=== PATIENT | male | born 2000 | race Caucasian/White ===

== ENCOUNTER 2019-04-25 01:54 | Emergency (ER) | payer SELFPAY ==
[2019-04-25 01:55] VITALS: BP 133/81; PULSE 85; RESP 16; TEMP 36.6; O2SAT 100; BMI 35.9
--- NOTE | 2019-04-25 02:10 | ED.DCSUM_ITS ---
History of Present Illness Chief Complaint: Eye Problem Narrative: Patient is a 18-year-old male who presents with a foreign body sensation in his left eye. He does work as a fiberglass laminator. He uses eye protection including safety goggles. He has a fixed helmet, not an auto-dimming helmet. He felt fine when he went to bed but when he woke this morning he had left eye pain and a foreign body sensation. He denies any photophobia/light sensitivity. He does have eye redness. No history of prior similar symptoms. He denies any blurry vision or visual changes. Past Medical History - Allergies and Home Meds Allergies/Adverse Reactions: Allergies No Known Allergies Allergy (Verified 04/25/19 01:57) Primary Care Physician: NOT,DEFINED [Primary Care Provider] - Past Medical History: None Smoking Status: Never smoker Review of Systems All systems negative except as indicated General: Denies: Fever Eyes: Reports: - - Left eye pain/foreign body sensation Cardiovascular: Denies: Chest pain Respiratory: Denies: Dyspnea Physical Exam Vital Signs/Narrative: Vital Signs Temp Pulse Resp BP Pulse Ox 04/25/19 01:55 97.8 F 85 16 133/81 H 100 Inital Vital Signs reviewed: Yes General: Well nourished Head: Normocephalic Eyes: - - Left eye conjunctival injection no foreign body visualized, eyelid everted, pupils are equally round and reactive to light and accommodation, extraocular motion intact without pain or palsy anterior chambers deep and quiet slit-lamp examination with floor seen does reveal punctate dye uptake/punctate keratitis Cardiovascular: Regular rate Respiratory: No distress Skin: Normal color Neurological: Alert Psychological: Normal affect Diagnostic/Tx/Re-eval - Medical Decision Making Patient's exam is consistent with UV keratitis. He was given ophthalmic bacitracin and instructed on symptomatic or supportive care. He was referred to ophthalmology for follow-up. He understands to return for new or worsening symptoms and was instructed on signs and symptoms to monitor for. ED Disposition - Plan for ED Patient: Disposition: Home or Assisted Living Diagnosis: UV keratitis Instructions: FLASH BURN, Eye Referrals: NOT,DEFINED [Primary Care Provider] - Saurabh Aden MD [STAFF PHYSICIAN] -
[2019-04-25] MEDS: Tetracaine 0.5% Ophthalmic Bottle 1 DRP LEFT EYE (02:27)
[2019-04-25] MEDS: Fluorescein 1 MG STRIP 1 STRIP LEFT EYE (02:28)
[2019-04-25 02:29] VITALS: PULSE 86; RESP 16; O2SAT 100
--- NOTE | 2019-04-25 02:29 | ED.RN ---
PT REFUSED WORKMAN'S COMP.
== END 2019-04-25 02:29 | disposition home or self-care (01) ==
PROVIDERS: Emergency Provider Emergency Medicine
DX: H16.132 Photokeratitis, left eye (principal)
CPT/HCPCS: 99282

== ENCOUNTER 2019-06-16 23:19 | Emergency (ER) | payer SELFPAY ==
[2019-06-16 23:19] VITALS: BP 159/78; PULSE 83; RESP 15; TEMP 36.4; O2SAT 97; BMI 35.2
--- NOTE | 2019-06-16 23:56 | ED.DCSUM_ITS ---
History of Present Illness Chief Complaint: Eye Problem Detail of Chief Complaint: Foreign body left eye Informant: Patient Onset: Yesterday Current Severity: Mild Maximum Severity: Mild Narrative: Patient was grinding yesterday without safety glasses. He felt something hit his left eye. He presents greater than 24 hours from the time of injury. He states he does see a small piece of metal on the colored portion of his left eye. He has mild light sensitivity. No obvious vision change. Past Medical History - Allergies and Home Meds Allergies/Adverse Reactions: Allergies No Known Allergies Allergy (Verified 06/16/19 23:22) Primary Care Physician: Care Physician,No Primary [Primary Care Provider] - Prior records reviewed: Yes Past Medical History: - - Reviewed Smoking Status: Never smoker Review of Systems General: Denies: Chills, Fever Eyes: Reports: - - Foreign body sensation left eye. Denies: Visual changes - bilaterally ENT: Denies: Bilateral ear pain Cardiovascular: Denies: Chest pain Respiratory: Denies: Dyspnea Gastrointestinal: Denies: Abdominal pain Neurological: Denies: Headache Physical Exam Vital Signs/Narrative: Vital Signs Temp Pulse Resp BP Pulse Ox 06/16/19 23:19 97.6 F L 83 15 159/78 H 97 Inital Vital Signs reviewed: Yes General: Well nourished, Well developed Head: Normocephalic Eyes: Perrl, EOMI, - - Small foreign body noted at the 2 o'clock position of the left eye. Minimal conjunctival injection. Extraocular movements intact. ENT: Moist mucous membranes Neck: Supple Cardiovascular: Regular rate, Regular rhythm Respiratory: No distress Abdomen: Soft Diagnostic/Tx/Re-eval - Medical Decision Making Tetracaine is applied to the left eye. Slit-lamp examination does reveal foreign body noted at the 2 o'clock position. I am unable to remove this with cotton swab. It is bigger than 24 hours and appears to have healed over alread y. I will speak with ophthalmology for close follow-up. Patient be given antibiotic eyedrops. ED Disposition - Plan for ED Patient: Disposition: Home or Assisted Living Diagnosis: Foreign body of left eye Referrals: Reymundo Del Rosario MD [STAFF PHYSICIAN] - 2 Days Additional Instructions: Gentamicin eye drops - one drop to affected eye every 6 hours until cleared by ophthalmology. You have a metal foreign body in your left eye - the surface of the eye has already healed over. You will need to see ophthalmology to have this removed. Call Dr Del Rosario's office on Tuesday morning to be seen on Tuesday.
[2019-06-17] MEDS: Gentamicin Sulfate 1 OPTH.BTL 1 DRP LEFT EYE (00:08)
[2019-06-17] MEDS: Tetracaine 0.5% Ophthalmic Bottle 1 DRP LEFT EYE (00:08)
== END 2019-06-17 00:11 | disposition home or self-care (01) ==
PROVIDERS: Emergency Provider Emergency Medicine
DX: T15.92XA Foreign body on external eye, part unspecified, left eye, initial encounter (principal); X58.XXXA Exposure to other specified factors, initial encounter
CPT/HCPCS: 99282